=== PATIENT | male | born 1975 | race Caucasian/White ===

== ENCOUNTER 2016-11-12 20:56 | Emergency (ER) | payer OTHER ==
--- NOTE | 2016-11-12 21:13 | EDM.PDOC ---
ED HPI GENERAL MEDICAL PROBLEM - General Chief Complaint: General Stated Complaint: BROUGHT BY AMBULANCE Time Seen by Provider: 11/12/16 21:09 Source of Information: Reports: Patient, EMS History Limitations: Reports: No limitations - History of Present Illness INITIAL COMMENTS - FREE TEXT/NARRATIVE: Pt states went to the bar to play darts and felt very hot inside the bar, then went to bathroom and passed out while coming out. denies assoc' [place]/CP/SOB/ paraesthesia-paresis to limbs. EMS found Pt alert Ox3 ambulated to ambulance unassisted. Pt states feels fine at present denies prior incident. - Related Data Allergies Allergy/AdvReac Type Severity Reaction Status Date / Time Penicillins Allergy Cannot Verified 11/12/16 21:06 Remember Home Meds: Home Meds . [No Known Home Meds] 11/12/16 [History] Past Medical History Cardiovascular History: Reports: Hypertension Social & Family History - Tobacco Use Smoking Status *Q: Never Smoker Second Hand Smoke Exposure: No - Caffeine Use Caffeine Use: Reports: Coffee, Soda, Tea - Alcohol Use Date of Last Drink: 11/12/16 Time of Last Drink: 18:30 - Recreational Drug Use Recreational Drug Use: No ED ROS GENERAL - Review of Systems Review Of Systems: ROS reveals no pertinent complaints other than HPI. ED EXAM, GENERAL - Physical Exam Exam: See Below Exam Limited By: No limitations General Appearance: alert, WD/WN, no apparent distress Eye Exam: bilateral eye: PERRL (pupils ER @ 4mm) Ears: hearing grossly normal Throat/Mouth: Normal voice, No airway compromise Head: atraumatic Neck: non-tender, full range of motion Respiratory/Chest: no respiratory distress Cardiovascular: regular rate, rhythm GI/Abdominal: soft, non tender Neurological: alert, oriented, normal cognition, normal gait, no motor/sensory deficits Psychiatric: normal affect, normal mood Skin Exam: Warm, Dry Lymphatic: no adenopathy Course - Vital Signs Last Recorded V/S: Last Vital Signs Temp 35.4 C 11/12/16 21:03 Pulse 92 11/12/16 21:03 Resp 19 11/12/16 21:03 BP 101/83 11/12/16 21:03 Pulse Ox 100 11/12/16 21:03 - Orders/Labs/Meds Orders: Active Orders 24 hr Category Date Time Status EKG 12 Lead [EKG Documentation Completion] [RC] STAT Care 11/12/16 21:06 Active Labs: Laboratory Tests 11/12/16 11/12/16 Range/Units 21:14 21:14 WBC 10.1 H (5.0-10.0) 10^3/uL RBC 5.55 (4.6-6.2) 10^6/uL Hgb 16.1 (14.0-18.0) g/dL Hct 47.4 (40.0-54.0) % MCV 85.4 (80-100) fL MCH 29.0 (27.0-34.0) pg MCHC 34.0 (33.0-35.0) g/dL Plt Count 272 (150-450) 10^3/uL Neut % (Auto) 83.0 H (42.2-75.2) % Lymph % (Auto) 9.8 L (20.5-50.1) % Whiteside % (Auto) 5.7 (2-8) % Eos % (Auto) 0.9 L (1.0-3.0) % Baso % (Auto) 0.6 (0.0-1.0) % Sodium 137 (135-145) mmol/L Potassium 3.9 (3.6-5.0) mmol/L Chloride 102 (101-111) mmol/L Carbon Dioxide 28.0 (21.0-31.0) mmol/L Anion Gap 10.9 BUN 16 (7-18) mg/dL Creatinine 1.1 (0.6-1.3) mg/dL Est Cr Clr Drug Dosing 88.89 mL/min Estimated GFR (MDRD) > 60 BUN/Creatinine Ratio 14.54 Glucose 128 H (74-105) mg/dL Calcium 9.0 (8.4-10.2) mg/dl Total Bilirubin 0.7 (0.2-1.0) mg/dL AST 20 (10-42) IU/L ALT 36 (10-60) IU/L Alkaline Phosphatase 76 (42-121) IU/L Troponin I < 0.02 (0.00-0.02) ng/ml Total Protein 8.3 H (6.7-8.2) g/dl Albumin 4.6 (3.2-5.5) g/dl Globulin 3.7 Albumin/Globulin Ratio 1.24 - Re-Assessments/Exams Free Text/Narrative Re-Assessment/Exam: 11/12/16 21:59 results discussed with Pt who is still feeling fine without c/o. Departure - Departure Time of Disposition: 22:02 Disposition: Home, Self-Care 01 Condition: good Clinical Impression: Vasovagal near syncope Instructions: Syncope, [id number] Forms: ED Department Discharge Additional Instructions: 1) rest as much as possible 2) avoid vigorous activities next 3 to 4 days 3) follow up at clinic or recheck if problem recurs. - My Orders Last 24 Hours: My Active Orders 11/12/16 21:06 EKG 12 Lead [EKG Documentation Completion] [RC] STAT - Assessment/Plan Last 24 Hours: My Active Orders 11/12/16 21:06 EKG 12 Lead [EKG Documentation Completion] [RC] STAT
[2016-11-12 21:40] LABS: CHLORIDE,CL 102 mmol/L (101-111); SODIUM,NA 137 mmol/L (135-145)
[2016-11-12 22:16] VITALS: BP 122/77
--- NOTE | 2016-11-13 17:42 | EKG ---
11/12/2016 - JERI ARAGON R - TIME: 2101 hours. I reviewed the EKG and agree with machine's reading. [facility] /[id number]
== END 2016-11-12 22:08 | disposition home or self-care (01) ==
LOC: DL.ED 20:56
DX: R55 Syncope and collapse (principal); I10 Essential (primary) hypertension; Z88.0 Allergy status to penicillin
CPT/HCPCS: 36415; 70450; 80053; 84484; 85025; 93005; 99284

== ENCOUNTER 2017-09-03 23:38 | Emergency (ER) | payer OTHER ==
--- NOTE | 2017-09-03 23:48 | EDM.PDOC ---
ED HPI GENERAL MEDICAL PROBLEM - General Chief Complaint: Chest Pain Stated Complaint: SICK [id number] Time Seen by Provider: 09/03/17 23:50 Source of Information: Reports: Patient History Limitations: Reports: No Limitations - History of Present Illness INITIAL COMMENTS - FREE TEXT/NARRATIVE: ED with c/o left sided chest pain radiating across chest . Some SOB with it, no nausea or chill. No cough. Non smoker. Recently quit chewing tobacco. Describes pain as burning. Does not change with activity. Has stayed constant since 630 or 7pm. Tried aleve but did not help. Reports hx of hypertension but is not on any medication. Employed at [employer], routine lifting of 50# boxes, No change or noted injury or muscle strain. Left Chest Pain Score (Numeric/FACES): 5 - Related Data Allergies Allergy/AdvReac Type Severity Reaction Status Date / Time Penicillins Allergy Cannot Verified 09/03/17 23:43 Remember Home Meds: Home Meds . [No Known Home Meds] 11/12/16 [History] Past Medical History Cardiovascular History: Reports: Hypertension Social & Family History - Tobacco Use Smoking Status *Q: Never Smoker Second Hand Smoke Exposure: No - Caffeine Use Caffeine Use: Reports: Coffee, Soda, Tea - Recreational Drug Use Recreational Drug Use: No ED ROS GENERAL - Review of Systems Review Of Systems: See Below Constitutional: Reports: No Symptoms HEENT: Reports: No Symptoms Respiratory: Reports: No Symptoms Cardiovascular: Reports: Chest Pain (left), Blood Pressure Problem (hx) GI/Abdominal: Reports: No Symptoms : Reports: No Symptoms Musculoskeletal: Reports: No Symptoms Skin: Reports: No Symptoms Neurological: Reports: No Symptoms Psychiatric: Reports: No Symptoms, Other (noted ETOH use one can of beer per week) ED EXAM, GENERAL - Physical Exam Exam: See Below Exam Limited By: No Limitations General Appearance: Alert, Anxious, Mild Distress Eye Exam: Bilateral Eye: EOMI Ears: Normal External Exam, Normal TMs Nose: Normal Inspection Throat/Mouth: Normal Inspection Head: Atraumatic, Normocephalic Neck: Normal Inspection Respiratory/Chest: No Respiratory Distress, Lungs Clear, Normal Breath Sounds, Other (left mid axillary chest wall tenderness with palpation.) Cardiovascular: Normal Peripheral Pulses, Regular Rate, Rhythm GI/Abdominal: Normal Bowel Sounds, Soft, Tender (mild epigastric with palpation) Extremities: No: Pedal Edema Neurological: Alert, Oriented, Normal Cognition Psychiatric: Flat Affect Skin Exam: Warm, Dry, Intact Course - Vital Signs Last Recorded V/S: Last Vital Signs Temp 97.7 F 09/03/17 23:40 Pulse 66 09/03/17 23:40 Resp 18 09/03/17 23:40 BP 152/98 H 09/04/17 00:00 Pulse Ox 98 09/03/17 23:40 - Orders/Labs/Meds Orders: Active Orders 24 hr Category Date Time Status EKG Documentation Completion [RC] URGENT Care 09/03/17 23:46 Active Labs: Laboratory Tests 09/03/17 09/03/17 09/03/17 Range/Units 23:50 23:50 23:50 WBC 7.7 (5.0-10.0) 10^3/uL RBC 5.50 (4.6-6.2) 10^6/uL Hgb 15.6 (14.0-18.0) g/dL Hct 46.3 (40.0-54.0) % MCV 84.2 (80-100) fL MCH 28.4 (27.0-34.0) pg MCHC 33.7 (33.0-35.0) g/dL Plt Count 258 (150-450) 10^3/uL Neut % (Auto) 55.6 (42.2-75.2) % Lymph % (Auto) 32.3 (20.5-50.1) % Delta % (Auto) 8.7 H (2-8) % Eos % (Auto) 2.6 (1.0-3.0) % Baso % (Auto) 0.8 (0.0-1.0) % D-Dimer, Quantitative (0-400) ng/mL Sodium 136 (135-145) mmol/L Potassium 3.9 (3.6-5.0) mmol/L Chloride 98 L (101-111) mmol/L Carbon Dioxide 27.0 (21.0-31.0) mmol/L Anion Gap 14.9 BUN 20 H (7-18) mg/dL Creatinine 1.0 (0.6-1.3) mg/dL Est Cr Clr Drug Dosing 100.83 mL/min Estimated GFR (MDRD) > 60 BUN/Creatinine Ratio 20.00 Glucose 111 H (74-105) mg/dL Calcium 9.4 (8.4-10.2) mg/dl Total Bilirubin 0.7 (0.2-1.0) mg/dL AST 89 H (10-42) IU/L ALT 84 H (10-60) IU/L Alkaline Phosphatase 79 (42-121) IU/L CK-MB (CK-2) 1.30 (0.4-4.7) ng/mL Troponin I < 0.02 (0.00-0.02) ng/ml Total Protein 7.8 (6.7-8.2) g/dl Albumin 4.4 (3.2-5.5) g/dl Globulin 3.4 Albumin/Globulin Ratio 1.29 Amylase 57 (28-100) U/L Lipase 20 L (22-51) U/L 09/03/17 Range/Units 23:50 WBC (5.0-10.0) 10^3/uL RBC (4.6-6.2) 10^6/uL Hgb (14.0-18.0) g/dL Hct (40.0-54.0) % MCV (80-100) fL MCH (27.0-34.0) pg MCHC (33.0-35.0) g/dL Plt Count (150-450) 10^3/uL Neut % (Auto) (42.2-75.2) % Lymph % (Auto) (20.5-50.1) % Delta % (Auto) (2-8) % Eos % (Auto) (1.0-3.0) % Baso % (Auto) (0.0-1.0) % D-Dimer, Quantitative < 100 (0-400) ng/mL Sodium (135-145) mmol/L Potassium (3.6-5.0) mmol/L Chloride (101-111) mmol/L Carbon Dioxide (21.0-31.0) mmol/L Anion Gap BUN (7-18) mg/dL Creatinine (0.6-1.3) mg/dL Est Cr Clr Drug Dosing mL/min Estimated GFR (MDRD) BUN/Creatinine Ratio Glucose (74-105) mg/dL Calcium (8.4-10.2) mg/dl Total Bilirubin (0.2-1.0) mg/dL AST (10-42) IU/L ALT (10-60) IU/L Alkaline Phosphatase (42-121) IU/L CK-MB (CK-2) (0.4-4.7) ng/mL Troponin I (0.00-0.02) ng/ml Total Protein (6.7-8.2) g/dl Albumin (3.2-5.5) g/dl Globulin Albumin/Globulin Ratio Amylase (28-100) U/L Lipase (22-51) U/L Meds: Medications Discontinued Medications Generic Name Dose Route Start Last Admin Trade Name Celia PRN Reason Stop Dose Admin Aspirin 324 mg 09/03/17 23:53 09/03/17 23:59 Aspirin PO 09/03/17 23:54 324 mg ONETIME ONE Administration Nitroglycerin 0.4 mg 09/03/17 23:54 09/04/17 00:00 Nitrostat SL 09/03/17 23:55 0.4 mg ONETIME ONE Administration - Radiology Interpretation Free Text/Narrative:: CXR Normal - Re-Assessments/Exams Free Text/Narrative Re-Assessment/Exam: 09/04/17 02:40 Discussed findings of lab and EKG. Patient instructed to follow up with PCP next week, Return if further symptoms. Departure - Departure Time of Disposition: 00:31 Disposition: Home, Self-Care 01 Condition: Good Clinical Impression: Non-cardiac chest pain Instructions: Nonspecific Chest Pain, [id number] Referrals: PCP,None [Primary Care Provider] - Forms: ED Department Discharge Additional Instructions: Follow up clinic next week bland diet urgent return if chest pain associated with nausea, difficulty breathing , sweating - My Orders Last 24 Hours: My Active Orders 09/03/17 23:46 EKG Documentation Completion [RC] URGENT - Assessment/Plan Last 24 Hours: My Active Orders 09/03/17 23:46 EKG Documentation Completion [RC] URGENT
[2017-09-03] MEDS ORDERED: Aspirin 81 MG Tab.Chew PO ONE (23:53)
[2017-09-03] MEDS ORDERED: Nitroglycerin 0.4 MG Tab.SL SL ONE (23:54)
[2017-09-04 00:01] VITALS: BP 152/98
[2017-09-04 00:21] LABS: CHLORIDE,CL 98 mmol/L (101-111); SODIUM,NA 136 mmol/L (135-145)
--- NOTE | 2017-09-06 14:35 | EKG ---
09/03/2017 - JERI ARAGON RAY - FINDINGS: This 12-lead EKG shows a normal sinus rhythm with a ventricular rate of 65. Normal axis and intervals. 1 mm Q-waves seen in the inferior leads of indeterminate age and significance. Baseline artifact seen in multiple leads. No acute ST-segment or T-wave changes. [facility] /[id number]
== END 2017-09-04 00:42 | disposition home or self-care (01) ==
LOC: DL.ED 23:38
DX: R07.89 Other chest pain (principal); I10 Essential (primary) hypertension; Z88.0 Allergy status to penicillin
CPT/HCPCS: 36415; 71045; 80053; 82150; 82553; 83690; 84484; 85025; 85379; 93005; 99285; A9270